=== PATIENT | female | born 1960 | race Two or more races ===

== ENCOUNTER → 2019-03-30 | Outpatient (CLI) | payer BC ==
--- NOTE | 2019-03-31 14:39 | RADRPT ---
PROCEDURE: XR bone length study CLINICAL INDICATION: Pain TECHNIQUE: Contiguous frontal images of the lower extremities were obtained. Composite view is subm itted for review. COMPARISON: None FINDINGS: There is possible mild overlap at the stitching of the proximal femurs. Measuring from the superior tip of the right femoral head to the mid aspect of the right tibial plafo nd, the mechanical axis extends just at the lateral tibial tray, with lying measuring 101 cm. Calibra massiel ruler measurement is 92 cm. Measuring from the superior tip of the left femoral head to the mid aspect of the left tibial plafond , of the mechanical axis extends just at the inner aspect medial tibial plateau, and measures 102.5 c m. Calibrated ruler measurement is 93.75 centimeter. There is mild superior left-sided pelvic tilt. Visualized portions of the hips demonstrate marginal osteophyte formation with borderline mild left h ip cartilage space narrowing. The pubic symphysis, sacrum and image lower lumbar spine are obscured b y overlying bowel gas and ruler. Status post total right knee arthroplasty without periprosthetic lucency or fracture on AP view. Mode rate left medial tibio-femoral compartment cartilage space narrowing with subchondral sclerosis and m arginal osteophyte formation. IMPRESSION: 1. Status post total right knee arthroplasty. 2. Mechanical axes and leg lengths as above. RPTAT: BBDD Physician Reynold Date Time Electronically viewed and signed by Physician Reynold on 03/31/2019 14:38 GILMA/
== END | disposition home or self-care (01) ==
LOC: HKI 12:58
PROVIDERS: ATTEND Orthopaedic Surgery Adult Reconstructive Orthopaedic Surgery
DX: M25.561 Pain in right knee (principal); Z96.651 Presence of right artificial knee joint
CPT/HCPCS: 77073

== ENCOUNTER 2019-07-11 06:02 | Inpatient (IN) | payer BC ==
[2019-07-11] VITALS (19 sets, daily range): BP systolic 90–145; BP diastolic 50–75; PULSE 62–116; RESP 12–18; Ht 154.9 cm; Wt 61.4 kg
[~2019-07-11] VITALS: Ht 154.9 cm; Wt 61.4 kg
[~2019-07-11 06:02] MED LIST: CEFAZOLIN 2 GM/50 ML (PMX) 50 ML IVPB ONE; FER325 PO; LEVO25TA50 PO; LISI10TA2 PO; METF500T24 PO
[2019-07-11] MEDS ORDERED: TRANEXAMIC ACID 1GM/100ML(PMX) 100 ML IV ONE (07:00)
[2019-07-11] MEDS ORDERED: TRANEXAMIC ACID 1,000 MG in NS 100 ML IV ONE (07:00)
[2019-07-11] MEDS ORDERED: MIDAZOLAM 1 MG/ML 2 ML INJ ONE (07:29)
[2019-07-11] MEDS ORDERED: ROCURONIUM 50 MG INJ ONE (07:29)
[2019-07-11] MEDS ORDERED: TRANEXAMIC ACID 1GM/100ML(PMX) 100 ML ONE (07:29)
[2019-07-11] MEDS ORDERED: CEFAZOLIN 1 GM INJ ONE ×3 (07:29→12:05)
[2019-07-11] MEDS ORDERED: PROPOFOL 20 ML ONE (07:29)
[2019-07-11] MEDS ORDERED: morphine SULFATE/PF (10 MG/10 ML) INJ ONE (07:29)
[2019-07-11] MEDS ORDERED: ONDANSETRON 4 MG INJ IV ONE (07:30)
[2019-07-11] MEDS ORDERED: GABAPENTIN 300 MG CAP PO SCH (07:30)
[2019-07-11] MEDS ORDERED: EPHEDrine 25 MG/5 ML SYG ONE (07:30)
[2019-07-11] MEDS ORDERED: CELECOXIB 200 MG CAP PO ONE (07:30)
[2019-07-11] MEDS ORDERED: ACETAMINOPHEN 1000MG/100ML IV 100 ML IVPB ONE (07:30)
[2019-07-11] MEDS ORDERED: PHENYLephrine (100 MCG/ML) 10ML SYG ONE (07:30)
[2019-07-11] MEDS ORDERED: SEVOFLURANE 15 MIN ONE (07:30)
[2019-07-11] MEDS ORDERED: LANSOPRAZOLE 30 MG CAP PO ONE (07:30)
[2019-07-11] MEDS ORDERED: ROPIVACAINE 0.5 % 30 ML VIAL ONE (07:56)
[2019-07-11] MEDS ORDERED: VANCOMYCIN 1 GM INJ ONE (08:22)
[2019-07-11] MEDS ORDERED: TOBRAMYCIN 1.2 GM POWDER ONE (08:23)
[2019-07-11] MEDS ORDERED: KETOROLAC 30 MG INJ ONE (09:18)
[2019-07-11] MEDS ORDERED: ONDANSETRON 4 MG INJ ONE (09:18)
[2019-07-11] MEDS ORDERED: METOCLOPRAMIDE 10 MG INJ ONE (09:18)
[2019-07-11] MEDS ORDERED: DEXAMETHASONE 4 MG/ML 5 ML INJ ONE (09:18)
[2019-07-11] MEDS ORDERED: HETASTARCH 6% NACL 500 ML ONE (12:04)
[2019-07-11] MEDS ORDERED: TRANEXAMIC ACID 1GM/100ML(PMX) 200 ML ONE (12:04)
[2019-07-11] MEDS ORDERED: SUGAMMADEX SODIUM 200 MG/2 ML VIAL IV ONE (13:47)
[2019-07-11] MEDS ORDERED: MAGNESIUM HYDROXIDE 30ML CUP PO PRN (14:30)
[2019-07-11] MEDS ORDERED: KETOROLAC 15 MG INJ IV PRN (14:30)
[2019-07-11] MEDS ORDERED: DOCUSATE SODIUM 100 MG CAP PO ONE (14:30)
[2019-07-11] MEDS ORDERED: DIPHENHYDRAMINE 50 MG INJ IV PRN (14:30)
[2019-07-11] MEDS ORDERED: oxyCODONE 5 MG TAB PO PRN ×3 (14:30)
[2019-07-11] MEDS ORDERED: NACL 0.9% 3 ML SYG IV SCH (14:30)
[2019-07-11] MEDS ORDERED: HYDROmorphONE 1 MG/ML SYG IV PRN (14:30)
[2019-07-11] MEDS ORDERED: BETHANECHOL 25 MG TAB PO PRN (14:30)
[2019-07-11] MEDS ORDERED: SENNA/DOCUSATE NA (8.6MG/50MG) TAB PO PRN (14:30)
[2019-07-11] MEDS ORDERED: NALOXONE (0.4 MG/ML) INJ IV PRN (14:30)
[2019-07-11] MEDS ORDERED: NA PHOSPHATE/BIPHOS 133 ML ENEMA PR PRN (14:30)
[2019-07-11] MEDS ORDERED: BISACODYL 10 MG SUPP PR PRN (14:30)
[2019-07-11] MEDS: CEFAZOLIN 2 GM/50 ML (PMX) 50 ML IVPB SCH ×2 (15:12→22:07)
[2019-07-11] MEDS: LACTATED RINGER'S 1,000 ML IV SCH (16:57)
[2019-07-11] MEDS: ONDANSETRON 4 MG INJ IV PRN (20:51)
[2019-07-11] MEDS: GABAPENTIN 300 MG CAP PO SCH (20:54)
[2019-07-11] MEDS: INSULIN ASPART [NOVOLOG] 3 ML PEN SC SCH (21:00)
[2019-07-11] MEDS: ACETAMINOPHEN 500 MG TAB PO SCH (21:54)
[2019-07-12 00:40] VITALS: BP 125/60; PULSE 60; RESP 18
[2019-07-12] MEDS: ACCU-CHEK XX SCH (02:00)
[2019-07-12 02:35] VITALS: BP 117/74; PULSE 83; RESP 17
[2019-07-12] MEDS: LACTATED RINGER'S 1,000 ML IV SCH ×2 (02:59→05:17)
[2019-07-12] MEDS: CEFAZOLIN 2 GM/50 ML (PMX) 50 ML IVPB SCH (05:17)
[2019-07-12] MEDS: ACETAMINOPHEN 500 MG TAB PO SCH ×4 (05:20→22:03)
[2019-07-12 05:22] VITALS: BP 132/63; PULSE 78; RESP 20
[2019-07-12 07:40] VITALS: BP 122/58; PULSE 64; RESP 18
[2019-07-12] MEDS: INSULIN ASPART [NOVOLOG] 3 ML PEN SC SCH ×4 (07:50→20:39)
[2019-07-12] MEDS: ASPIRIN (EC) 81 MG TAB PO SCH ×2 (08:41→20:38)
[2019-07-12] MEDS: DOCUSATE SODIUM 100 MG CAP PO SCH ×2 (08:41→20:39)
[2019-07-12] MEDS: ONDANSETRON 4 MG INJ IV PRN (09:37)
[2019-07-12] MEDS ORDERED: ONDANSETRON 4 MG INJ IV PRN (14:30)
[2019-07-12 14:33] VITALS: BP 104/52; PULSE 70; RESP 17
[2019-07-12 19:45] VITALS: BP 124/60; PULSE 94; RESP 18
[2019-07-12] MEDS: GABAPENTIN 300 MG CAP PO SCH (20:39)
[2019-07-13] MEDS: ACCU-CHEK XX SCH (02:00)
[2019-07-13 02:59] VITALS: BP 101/52; PULSE 89; RESP 18
[2019-07-13] MEDS: ACETAMINOPHEN 500 MG TAB PO SCH ×2 (05:42→14:54)
[2019-07-13] MEDS ORDERED: PANTOPRAZOLE (EC) 40 MG TAB PO SCH (06:00)
[2019-07-13 07:23] VITALS: BP 102/53; PULSE 83; RESP 17
[2019-07-13] MEDS: INSULIN ASPART [NOVOLOG] 3 ML PEN SC SCH ×4 (07:50→20:12)
[2019-07-13] MEDS: ASPIRIN (EC) 81 MG TAB PO SCH ×2 (08:38→20:11)
[2019-07-13] MEDS: DOCUSATE SODIUM 100 MG CAP PO SCH ×2 (08:38→20:12)
[2019-07-13] MEDS: LACTOBACILLUS RHAMNOSUS CAP PO SCH ×2 (08:39→20:11)
[2019-07-13 13:53] VITALS: BP 134/63; PULSE 94; RESP 20
[2019-07-13 19:47] VITALS: BP 125/58; PULSE 78; RESP 20
[2019-07-13] MEDS: GABAPENTIN 300 MG CAP PO SCH (20:11)
[2019-07-13] MEDS ORDERED: FAMOTIDINE 20 MG TAB PO SCH (21:00)
== END 2019-07-13 22:00 | DRG 468 ==
LOC: REC 06:02 → MS1 15:54
PROVIDERS: ADMIT Orthopaedic Surgery Adult Reconstructive Orthopaedic Surgery; ATTEND Orthopaedic Surgery Adult Reconstructive Orthopaedic Surgery
PROC: 0SPC0JZ Removal of Synthetic Substitute from Right Knee Joint, Open Approach (ICD-10-PCS; 2019-07-11)
PROC: 0SRC0J9 Replacement of Right Knee Joint with Synthetic Substitute, Cemented, Open Approach (ICD-10-PCS; principal; 2019-07-11 07:30)
DX: T84.092A Other mechanical complication of internal right knee prosthesis, initial encounter (principal); M17.11 Unilateral primary osteoarthritis, right knee; E11.8 Type 2 diabetes mellitus with unspecified complications; E88.81 Metabolic syndrome and other insulin resistance; I10 Essential (primary) hypertension; E78.5 Hyperlipidemia, unspecified; E03.9 Hypothyroidism, unspecified; K21.9 Gastro-esophageal reflux disease without esophagitis; M19.90 Unspecified osteoarthritis, unspecified site; R62.7 Adult failure to thrive; Z68.25 Body mass index [BMI] 25.0-25.9, adult; Y84.8 Other medical procedures as the cause of abnormal reaction of the patient, or of later complication, without mention of misadventure at the time of the procedure
CPT/HCPCS: 73560; 80048; 80053; 81003; 82962; 83036; 83735; 84100; 84443; 84484; 85025; 85610; 86850; 86900; 86901; 86920; 87070; 87075; 87081; 87086; 87102; 87116; 88300; 88304; 88331; 89060; 93005; 97110; 97116; 97162; 97165; 97530; C1776; C1713; J0131; J0171; J0690; J0735; J1100; J1815; J1885; J2250; J2274; J2370; J2405; J2765; J2795; J3370; J7120

== ENCOUNTER 2019-07-13 18:58 | Inpatient (IN) | payer BC ==
[~2019-07-13] VITALS: Ht 154.9 cm; Wt 65.0 kg
[~2019-07-13 18:58] MED LIST changes: -CEFAZOLIN 2 GM/50 ML (PMX) 50 ML IVPB ONE
[2019-07-13 22:30] VITALS: BP 124/62; PULSE 90; RESP 18
[2019-07-13] MEDS ORDERED: NA PHOSPHATE/BIPHOS 133 ML ENEMA PR PRN (22:30)
[2019-07-13] MEDS ORDERED: MAGNESIUM HYDROXIDE 30ML CUP PO PRN (22:30)
[2019-07-13] MEDS ORDERED: SENNA TAB PO PRN (22:30)
[2019-07-13] MEDS ORDERED: HYDROmorphONE 1 MG/ML SYG IV PRN (22:30)
[2019-07-13] MEDS ORDERED: BISACODYL 10 MG SUPP PR PRN (22:30)
[2019-07-13] MEDS ORDERED: KETOROLAC 15 MG INJ IV PRN (22:30)
[2019-07-13] MEDS ORDERED: NALOXONE (0.4 MG/ML) INJ IV PRN (22:30)
[2019-07-13] MEDS ORDERED: DIPHENHYDRAMINE 50 MG INJ IV PRN (22:30)
[2019-07-13] MEDS ORDERED: oxyCODONE 5 MG TAB PO PRN (22:30)
[2019-07-13] MEDS ORDERED: BETHANECHOL 25 MG TAB PO ONE (22:30)
[2019-07-13] MEDS ORDERED: ONDANSETRON 4 MG INJ IV PRN (22:30)
[2019-07-13 23:00] VITALS: Ht 154.9 cm; Wt 65.0 kg
[2019-07-13] MEDS ORDERED: DEXTROSE 50% 50 ML SYRINGE IV PRN ×2 (23:30)
[2019-07-13] MEDS ORDERED: ACETAMINOPHEN 325 MG TAB PO PRN (23:30)
[2019-07-13] MEDS ORDERED: GLUCOSE GEL 15 GRAM TUBE BUCCAL PRN (23:30)
[2019-07-13] MEDS ORDERED: GLUCOSE GEL 15 GRAM TUBE PO PRN ×2 (23:30)
[2019-07-13] MEDS ORDERED: GLUCAGON 1 MG INJ IM PRN (23:30)
[2019-07-13] MEDS: oxyCODONE 15 MG TAB PO PRN (23:54)
[2019-07-14] VITALS (8 sets, daily range): BP systolic 103–130; BP diastolic 51–78; PULSE 72–87; RESP 18
[2019-07-14] MEDS: ACCU-CHEK XX SCH ×4 (07:05→21:57)
[2019-07-14] MEDS: ACETAMINOPHEN 500 MG TAB PO SCH ×3 (07:21→21:20)
[2019-07-14] MEDS ORDERED: INSULIN ASPART [NOVOLOG] 3 ML PEN SC SCH (07:35)
[2019-07-14] MEDS: LACTOBACILLUS RHAMNOSUS CAP PO SCH ×2 (10:47→21:19)
[2019-07-14] MEDS: ASPIRIN (EC) 81 MG TAB PO SCH ×2 (10:47→21:19)
[2019-07-14] MEDS: DOCUSATE SODIUM 100 MG CAP PO SCH ×2 (10:47→21:20)
[2019-07-14] MEDS: INSULIN ASPART [NOVOLOG] 3 ML PEN SC SCH ×3 (12:00→21:00)
[2019-07-14] MEDS ORDERED: KETOROLAC 15 MG INJ IV PRN (14:30)
[2019-07-14] MEDS: metFORMIN 500 MG TAB PO SCH (17:14)
[2019-07-14] MEDS: oxyCODONE 15 MG TAB PO PRN (18:54)
[2019-07-14] MEDS: FAMOTIDINE 20 MG TAB PO SCH (21:20)
[2019-07-14] MEDS: GABAPENTIN 300 MG CAP PO SCH (21:20)
[2019-07-15 02:05] VITALS: BP 117/67; PULSE 78; RESP 18
[2019-07-15] MEDS: LEVOTHYROXINE 25 MCG TAB PO SCH (06:31)
[2019-07-15] MEDS: ACETAMINOPHEN 500 MG TAB PO SCH ×3 (06:31→21:20)
[2019-07-15] MEDS: ACCU-CHEK XX SCH ×4 (07:05→21:00)
[2019-07-15] MEDS: INSULIN ASPART [NOVOLOG] 3 ML PEN SC SCH ×4 (07:35→21:00)
[2019-07-15] MEDS: metFORMIN 500 MG TAB PO SCH ×2 (07:57→17:36)
[2019-07-15] MEDS: LACTOBACILLUS RHAMNOSUS CAP PO SCH ×2 (08:52→21:20)
[2019-07-15] MEDS: LACTULOSE 30ML CUP PO PRN (08:52)
[2019-07-15] MEDS: ASPIRIN (EC) 81 MG TAB PO SCH ×2 (08:53→21:20)
[2019-07-15] MEDS: DOCUSATE SODIUM 100 MG CAP PO SCH ×2 (08:53→21:20)
[2019-07-15] MEDS: LISINOPRIL 10 MG TAB PO SCH (08:53)
[2019-07-15] MEDS: SOD FERRIC GLUC COMPLX 125 MG in SOD CHLORIDE 0.9% 100 ML IVPB SCH (12:25)
[2019-07-15 14:00] VITALS: BP 127/66; PULSE 75; RESP 18
[2019-07-15 19:43] VITALS: BP 136/65; PULSE 92; RESP 18
[2019-07-15] MEDS: GABAPENTIN 300 MG CAP PO SCH (21:20)
[2019-07-15] MEDS: FAMOTIDINE 20 MG TAB PO SCH (21:20)
[2019-07-16] MEDS: oxyCODONE 5 MG TAB PO PRN ×2 (00:10→09:02)
[2019-07-16 03:01] VITALS: BP 117/56; PULSE 69; RESP 17
[2019-07-16] MEDS: LEVOTHYROXINE 25 MCG TAB PO SCH (06:44)
[2019-07-16] MEDS: ACETAMINOPHEN 500 MG TAB PO SCH ×3 (06:45→21:40)
[2019-07-16 07:00] VITALS: BP 114/63; PULSE 74; RESP 18
[2019-07-16] MEDS: INSULIN ASPART [NOVOLOG] 3 ML PEN SC SCH ×4 (07:35→21:00)
[2019-07-16] MEDS: ACCU-CHEK XX SCH ×4 (07:48→21:37)
[2019-07-16] MEDS: metFORMIN 500 MG TAB PO SCH ×2 (07:55→17:19)
[2019-07-16] MEDS: ASPIRIN (EC) 81 MG TAB PO SCH ×2 (09:01→21:35)
[2019-07-16] MEDS: LACTOBACILLUS RHAMNOSUS CAP PO SCH ×2 (09:01→21:35)
[2019-07-16] MEDS: LACTULOSE 30ML CUP PO PRN (09:01)
[2019-07-16] MEDS: DOCUSATE SODIUM 100 MG CAP PO SCH ×2 (09:02→21:35)
[2019-07-16] MEDS: LISINOPRIL 10 MG TAB PO SCH (09:02)
[2019-07-16] MEDS: SOD FERRIC GLUC COMPLX 125 MG in SOD CHLORIDE 0.9% 100 ML IVPB SCH (12:41)
[2019-07-16 14:00] VITALS: BP 122/59; PULSE 84; RESP 18
[2019-07-16 20:00] VITALS: BP 117/61; PULSE 71; RESP 18
[2019-07-16] MEDS: FAMOTIDINE 20 MG TAB PO SCH (21:35)
[2019-07-16] MEDS: GABAPENTIN 300 MG CAP PO SCH (21:35)
[2019-07-17 02:00] VITALS: BP 122/59; PULSE 67; RESP 18
[2019-07-17] MEDS: LEVOTHYROXINE 25 MCG TAB PO SCH (06:55)
[2019-07-17] MEDS: ACETAMINOPHEN 500 MG TAB PO SCH ×3 (06:55→21:08)
[2019-07-17 07:00] VITALS: BP 135/66; PULSE 61; RESP 18
[2019-07-17] MEDS: ACCU-CHEK XX SCH ×4 (07:05→21:00)
[2019-07-17] MEDS: INSULIN ASPART [NOVOLOG] 3 ML PEN SC SCH ×4 (07:35→21:00)
[2019-07-17] MEDS: metFORMIN 500 MG TAB PO SCH ×2 (07:59→17:15)
[2019-07-17] MEDS: DOCUSATE SODIUM 100 MG CAP PO SCH ×2 (08:59→21:04)
[2019-07-17] MEDS: LACTOBACILLUS RHAMNOSUS CAP PO SCH ×2 (08:59→21:08)
[2019-07-17] MEDS: ASPIRIN (EC) 81 MG TAB PO SCH ×2 (08:59→21:04)
[2019-07-17] MEDS: LISINOPRIL 10 MG TAB PO SCH (09:00)
[2019-07-17] MEDS: oxyCODONE 15 MG TAB PO PRN (11:13)
[2019-07-17] MEDS: SOD FERRIC GLUC COMPLX 125 MG in SOD CHLORIDE 0.9% 100 ML IVPB SCH (12:24)
[2019-07-17 14:00] VITALS: BP 146/65; PULSE 61; RESP 18
[2019-07-17 20:00] VITALS: BP 125/60; PULSE 72; RESP 18
[2019-07-17] MEDS: FAMOTIDINE 20 MG TAB PO SCH (21:04)
[2019-07-17] MEDS: GABAPENTIN 300 MG CAP PO SCH (21:04)
[2019-07-17] MEDS: oxyCODONE 5 MG TAB PO PRN (23:23)
[2019-07-18 02:37] VITALS: BP 99/56; PULSE 70; RESP 18
[2019-07-18] MEDS: ACETAMINOPHEN 500 MG TAB PO SCH ×3 (06:15→21:51)
[2019-07-18 07:00] VITALS: BP 107/66; PULSE 61; RESP 18
[2019-07-18] MEDS: ACCU-CHEK XX SCH ×4 (07:05→21:54)
[2019-07-18] MEDS: LEVOTHYROXINE 25 MCG TAB PO SCH (07:10)
[2019-07-18] MEDS: INSULIN ASPART [NOVOLOG] 3 ML PEN SC SCH ×4 (07:35→21:00)
[2019-07-18] MEDS: metFORMIN 500 MG TAB PO SCH ×2 (08:07→17:26)
[2019-07-18] MEDS: DOCUSATE SODIUM 100 MG CAP PO SCH ×2 (10:43→21:00)
[2019-07-18] MEDS: LACTOBACILLUS RHAMNOSUS CAP PO SCH ×2 (10:43→20:55)
[2019-07-18] MEDS: ASPIRIN (EC) 81 MG TAB PO SCH ×2 (10:43→20:55)
[2019-07-18] MEDS: LISINOPRIL 10 MG TAB PO SCH (10:44)
[2019-07-18] MEDS: SOD FERRIC GLUC COMPLX 125 MG in SOD CHLORIDE 0.9% 100 ML IVPB SCH (13:26)
[2019-07-18 14:00] VITALS: BP 138/63; PULSE 110; RESP 18
[2019-07-18 20:21] VITALS: BP 115/60; PULSE 83; RESP 18
[2019-07-18] MEDS: FAMOTIDINE 20 MG TAB PO SCH (20:55)
[2019-07-18] MEDS: GABAPENTIN 300 MG CAP PO SCH (20:55)
[2019-07-19 02:00] VITALS: BP 122/62; PULSE 87; RESP 18
[2019-07-19] MEDS: LEVOTHYROXINE 25 MCG TAB PO SCH (06:31)
[2019-07-19] MEDS: ACETAMINOPHEN 500 MG TAB PO SCH ×3 (06:31→21:18)
[2019-07-19] MEDS: ACCU-CHEK XX SCH ×4 (07:05→21:18)
[2019-07-19] MEDS: INSULIN ASPART [NOVOLOG] 3 ML PEN SC SCH ×4 (07:35→21:00)
[2019-07-19 08:00] VITALS: BP 123/68; PULSE 74; RESP 18
[2019-07-19] MEDS: metFORMIN 500 MG TAB PO SCH ×2 (08:09→17:18)
[2019-07-19] MEDS: DOCUSATE SODIUM 100 MG CAP PO SCH ×2 (08:54→21:00)
[2019-07-19] MEDS: LISINOPRIL 10 MG TAB PO SCH (08:54)
[2019-07-19] MEDS: LACTOBACILLUS RHAMNOSUS CAP PO SCH ×2 (08:54→20:34)
[2019-07-19] MEDS: ASPIRIN (EC) 81 MG TAB PO SCH ×2 (08:54→20:34)
[2019-07-19] MEDS: SOD FERRIC GLUC COMPLX 125 MG in SOD CHLORIDE 0.9% 100 ML IVPB SCH (12:26)
[2019-07-19] MEDS: traMADol 50 MG TAB PO PRN (13:19)
[2019-07-19 14:00] VITALS: BP 112/61; PULSE 72; RESP 17
[2019-07-19 20:00] VITALS: BP 124/65; PULSE 77; RESP 18
[2019-07-19] MEDS: FAMOTIDINE 20 MG TAB PO SCH (20:34)
[2019-07-19] MEDS: GABAPENTIN 300 MG CAP PO SCH (20:34)
[2019-07-20 02:00] VITALS: BP 118/62; PULSE 73; RESP 18
[2019-07-20] MEDS: ACETAMINOPHEN 500 MG TAB PO SCH (06:04)
[2019-07-20] MEDS: LEVOTHYROXINE 25 MCG TAB PO SCH (06:10)
[2019-07-20 07:30] VITALS: BP 132/63; PULSE 71; RESP 20
[2019-07-20] MEDS: INSULIN ASPART [NOVOLOG] 3 ML PEN SC SCH (07:35)
[2019-07-20] MEDS: ACCU-CHEK XX SCH ×2 (07:54→11:30)
[2019-07-20] MEDS: metFORMIN 500 MG TAB PO SCH (07:55)
[2019-07-20] MEDS: ASPIRIN (EC) 81 MG TAB PO SCH (08:43)
[2019-07-20] MEDS: LACTOBACILLUS RHAMNOSUS CAP PO SCH (08:44)
[2019-07-20] MEDS: DOCUSATE SODIUM 100 MG CAP PO SCH (08:44)
[2019-07-20] MEDS: LISINOPRIL 10 MG TAB PO SCH (08:44)
[2019-07-20] MEDS: traMADol 50 MG TAB PO PRN (09:20)
== END 2019-07-20 12:30 | disposition home or self-care (01) | DRG 561 ==
LOC: VRC 22:09
PROVIDERS: ADMIT Physical Medicine & Rehabilitation; ATTEND Internal Medicine Pulmonary Disease
PROC: 30277N1 Transfusion of Nonautologous Red Blood Cells into Products of Conception, Circulatory, Via Natural or Artificial Opening (ICD-10-PCS; principal; 2019-07-14)
DX: Z47.1 Aftercare following joint replacement surgery (principal); G89.18 Other acute postprocedural pain; Z96.651 Presence of right artificial knee joint; D64.9 Anemia, unspecified; I10 Essential (primary) hypertension; E11.9 Type 2 diabetes mellitus without complications; E03.9 Hypothyroidism, unspecified; K21.9 Gastro-esophageal reflux disease without esophagitis; Z74.09 Other reduced mobility; R42 Dizziness and giddiness
CPT/HCPCS: 36430; 80053; 81003; 82728; 82962; 83540; 85025; 86850; 86900; 86901; 86920; 87081; 87086; 97110; 97116; 97162; 97166; 97530; 97535; J1815; J2405; J2916; P9016